=== PATIENT | male | born 1980 | race Caucasian/White ===

== ENCOUNTER 2019-08-06 15:02 | Emergency (ER) | payer BC, OTHER ==
[2019-08-06] MEDS ORDERED: Polymyxin B/Trimethoprim 10 ML Bottle EYERT ONE (16:41)
--- NOTE | 2019-08-06 16:44 | EDM.PDOC ---
ED HPI GENERAL MEDICAL PROBLEM - General Chief Complaint: Eye Problems Stated Complaint: EYE PROBLEMS Time Seen by Provider: 08/06/19 16:34 Source of Information: Reports: Patient, RN, RN Notes Reviewed History Limitations: Reports: No Limitations - History of Present Illness INITIAL COMMENTS - FREE TEXT/NARRATIVE: Pt to ER with c/o right eye pain. Patient states he began feeling irritation in the right eye while he was driving yesterday. Patient states he took his contact out and felt it was more stuck than usual. He pulled out the contact and states since then his right eye has been more irritated, pain, and sensitivity to light. Patient has not been wearing his contacts since then, has been wearing his prescription glasses. Denies yellow or green discharge, states the eye has been tearing frequently. Onset: Today, Sudden Duration: Constant, Getting Worse Quality: Reports: Burning Severity: Moderate Improves with: Reports: None Right Eye Pain Score (Numeric/FACES): 2 - Related Data Allergies Allergy/AdvReac Type Severity Reaction Status Date / Time No Known Allergies Allergy Verified 08/06/19 15:13 Home Meds: Home Meds . [No Known Home Meds] 08/06/19 [History] Past Medical History HEENT History: Reports: Impaired Vision Cardiovascular History: Reports: None Respiratory History: Reports: None Gastrointestinal History: Reports: None Genitourinary History: Reports: None Musculoskeletal History: Reports: None Neurological History: Reports: None Psychiatric History: Reports: None Endocrine/Metabolic History: Reports: None Hematologic History: Reports: None Immunologic History: Reports: None Oncologic (Cancer) History: Reports: None Dermatologic History: Reports: None - Infectious Disease History Infectious Disease History: Reports: None - Past Surgical History Head Surgeries/Procedures: Reports: None Social & Family History - Family History Family Medical History: Noncontributory - Tobacco Use Smoking Status *Q: Never Smoker Second Hand Smoke Exposure: No - Caffeine Use Caffeine Use: Reports: Coffee - Recreational Drug Use Recreational Drug Use: No ED ROS GENERAL - Review of Systems Review Of Systems: ROS reveals no pertinent complaints other than HPI. ED EXAM GENERAL W FULL EYE - Physical Exam Exam: See Below Exam Limited By: No Limitations General Appearance: Alert, WD/WN, Mild Distress Eye Exam: Right Eye: Conjunctival Injection, Bilateral Eye: PERRL (3 brisk) Eyelids: Right: Erythema Conjunctiva & Sclera: Right: Injected Cornea Exam: Right: Corneal Abrasion Pupils: Normal Accommodation Pupillary Size: Bilateral: 3 mm Ears: Normal External Exam, Hearing Grossly Normal Nose: Normal Inspection Throat/Mouth: Normal Inspection, Normal Voice, No Airway Compromise Head: Atraumatic, Normocephalic Neck: Normal Inspection, Supple, Non-Tender, Full Range of Motion Respiratory/Chest: No Respiratory Distress, Lungs Clear, Normal Breath Sounds, No Accessory Muscle Use, Chest Non-Tender Cardiovascular: Normal Peripheral Pulses, Regular Rate, Rhythm, No Edema, No Gallop, No JVD, No Murmur, No Rub GI/Abdominal: Normal Bowel Sounds, Soft, Non-Tender (Male) Exam: Deferred Rectal (Males) Exam: Deferred Back Exam: Normal Inspection, Full Range of Motion, NT Extremities: Normal Inspection, Normal Range of Motion, Non-Tender, Normal Capillary Refill, No Pedal Edema Neurological: Alert, Oriented, CN II-XII Intact, Normal Cognition, Normal Gait, Normal Reflexes, No Motor/Sensory Deficits Psychiatric: Normal Affect, Normal Mood Skin Exam: Warm, Dry, Intact, Normal Color, No Rash Lymphatic: No Adenopathy Course - Vital Signs Last Recorded V/S: Last Vital Signs Temp 97.5 F 08/06/19 15:14 Pulse 64 08/06/19 15:14 Resp 16 08/06/19 15:14 BP 134/84 08/06/19 15:14 Pulse Ox 100 08/06/19 15:14 - Orders/Labs/Meds Meds: Medications Discontinued Medications Generic Name Dose Route Start Last Admin Trade Name Freq PRN Reason Stop Dose Admin Polymyxin/Trimethoprim Sulfate 1 ml 08/06/19 16:41 08/06/19 16:52 Polytrim Ophth Soln EYERT 08/06/19 16:42 1 drop ONETIME ONE Administration Departure - Departure Time of Disposition: 16:42 Disposition: Home, Self-Care 01 Condition: Fair Clinical Impression: Corneal abrasion Qualifiers: Encounter type: initial encounter Laterality: right Qualified Code(s): S05.01XA - Injury of conjunctiva and corneal abrasion without foreign body, right eye, initial encounter - Discharge Information *PRESCRIPTION DRUG MONITORING PROGRAM REVIEWED*: No *COPY OF PRESCRIPTION DRUG MONITORING REPORT IN PATIENT TONJA: No Instructions: Corneal Abrasion, [id number] Forms: ED Department Discharge Additional Instructions: RX: Trimethoprim-Polymyxin B, 1 drop to affected eye 3-5 times daily until healed Follow up with your Eye doctor Do not wear contacts until fully healed Throw current contacts away
== END 2019-08-06 16:53 | disposition home or self-care (01) ==
LOC: DL.ED 15:02
DX: S05.01XA Injury of conjunctiva and corneal abrasion without foreign body, right eye, initial encounter (principal); X58.XXXA Exposure to other specified factors, initial encounter
CPT/HCPCS: 99283; A9270